=== PATIENT | male | born 1955 | race Caucasian/White ===

== ENCOUNTER 2017-01-26 16:46 | Emergency (ER) | payer BC, OTHER ==
[2017-01-26 17:04] VITALS: BP 168/92
[2017-01-26] MEDS ORDERED: NS 0.9% 1000 ML* 1,000 ML IV ONE (17:34)
[2017-01-26] MEDS ORDERED: Ketorolac INJ* 30 MG/ML 1 ML VIAL IM ONE (17:41)
[2017-01-26] MEDS ORDERED: Ketorolac INJ* 30 MG/ML 1 ML VIAL IV PUSH ONE (17:45)
[2017-01-26] MEDS ORDERED: Ketorolac INJ* 30 MG/ML 1 ML VIAL ONE (17:49)
--- NOTE | 2017-01-26 18:14 | RAD ---
INDICATION: 2 weeks LEFT flank pain. COMPARISON: December 07, 2015 CT. TECHNIQUE: Multidetector CT images were obtained from the lung bases to the ischial tuberosities. Evaluation of the viscera is limited without IV contrast. Multiplanar reformation. REPORT: Small calcified granuloma at the RIGHT lung base and small calcified RIGHT infrahilar lymph nodes. No CT abnormality of the unenhanced liver, gallbladder, pancreas. Small calcified granulomas at the normal sized spleen. Negative for CT abnormality of the upper GI, small bowel, or infra cecal appendix. Mild colonic diverticulosis without findings of diverticulitis. Negative for ascites, or free air. Small fat-containing umbilical hernia without inflammatory change. No significant hernias evident. Normal adrenal glands. 1.5 cm exophytic water density cyst superior pole RIGHT kidney is decreased in size from 7.2 cm previously. No suspicious focal renal lesions, stones, or hydronephrosis. Unremarkable nondilated ureters. Unremarkable urinary bladder. Symmetric seminal vesicles. Multiple pelvic phleboliths. Normal diameter abdominal aorta and common iliac arteries. Physiologic distention of the IVC. Negative for suspicious osseous lesions. IMPRESSION: 1. Negative for urolithiasis or hydronephrosis. 2. Marked interval decrease in size of RIGHT superior pole renal cortical cyst. 3. Normal appendix visualized. 4. Mild colonic diverticulosis without findings of diverticulitis.
[2017-01-26 18:20] LABS: Hematocrit 51 % (42-52); Hemoglobin 17.5 g/dl (14.0-18.0); Mean Corpuscular HGB Conc 35 g/dl (31-36); Mean Corpuscular Hemoglobin 33 pg (27-31); Mean Corpuscular Volume 96 fL (80-94); Mean Platelet Volume 8 um3 (7.4-10.4); Red Blood Count 5.33 10^6/ul (4.0-5.4); Red Cell Distribution Width 12 % (10.5-15); White Blood Count 6.4 10^3/ul (3.5-10.8)
[2017-01-26 18:34] LABS: Potassium 3.6 mmol/L (3.5-5.0)
[2017-01-26 18:35] LABS: Albumin 4.1 g/dL (3.2-5.2); BUN/Creatinine Ratio 20.2 (8-20); C Reactive Protein 1.56 mg/L (< 5.00); Calcium 8.7 mg/dL (8.6-10.3); EGFR African American 112.5 (>60); EGFR Non-African American 87.5 (>60); Globulin 2.8 g/dL (2-4); Total Bilirubin 0.8 mg/dL (0.2-1.0); Total Protein 6.9 g/dL (6.4-8.9)
[2017-01-26] MEDS ORDERED: Dexamethasone IV* 4 MG/ML 1 ML (4 MG) IV SLOW PU ONE (18:50)
[2017-01-26] MEDS ORDERED: Orphenadrine Citrate IV* 30 MG/ML 2 ML VIAL IV ONE (18:50)
[2017-01-26] MEDS ORDERED: oxyCODONE/Acetamin 5/325 MG* TAB PO ONE (20:47)
--- NOTE | 2017-01-27 07:16 | ED ---
Neo Wilson SooYoung, scribed for Magdaleno Pappas MD on 01/26/17 at 1752 . Abdominal Pain/Male - HPI Summary HPI Summary: A 61 y/o M presents with L flank pain onset two weeks ago, worsened last night and radiating into groin. Initially, he thought it was a muscle strain. Flank pain at its worst is 10 out of 10, otherwise rates it as 6-7 out of 10. Denies dysuria, hematuria, frequency, CP, SOB. Alleviating factor: sitting position. PMHx: kidney stones. - History of Current Complaint Chief Complaint: EDFlankPain Stated Complaint: FLANK PAIN Hx Obtained From: Patient Onset/Duration: Gradual Onset, Lasting Hours - worsened last night, Lasting Weeks - 2 weeks, Still Present Timing: Intermittent Severity Initially: Moderate Severity Currently: Severe Pain Intensity: 7 Pain Scale Used: 0-10 Numeric Location: Flank - L Radiates: Yes Radiates to: Other - groin Alleviating Factor(s): Position - sitting Associated Signs And Symptoms: Negative: Chest Pain, Other - neg: SOB, dysuria, hematuria, frequency - Allergies/Home Medications Allergies/Adverse Reactions: Allergies Allergy/AdvReac Type Severity Reaction Status Date / Time No Known Allergies Allergy Verified 12/04/15 13:09 PMH/Surg Hx/FS Hx/Imm Hx Previously Healthy: No Endocrine/Hematology History: Denies: Hx Anticoagulant Therapy, Hx Diabetes, Hx Thyroid Disease Cardiovascular History: Reports: Hx Hypertension Denies: Hx Pacemaker/ICD Respiratory History: Reports: Hx Sleep Apnea - Uses Cpap at home Denies: Hx Asthma, Hx Chronic Obstructive Pulmonary Disease (COPD) History: Reports: Hx Kidney Stones Denies: Hx Kidney Infection, Hx Renal Disease Musculoskeletal History: Reports: Other Musculoskeletal History - Current hummerus fracture Sensory History: Reports: Hx Contacts or Glasses Opthamlomology History: Reports: Hx Contacts or Glasses Neurological History: Denies: Hx Dementia, Hx Seizures Psychiatric History: Denies: Hx Substance Abuse - Surgical History Surgery Procedure, Year, and Place: tonsillectomy Infectious Disease History: Denies: Hx Hepatitis, Hx Human Immunodeficiency Virus (HIV), Traveled Outside the [place] in Last 30 Days - Family History Known Family History: Positive: Cardiac Disease - CAD - MOTHER - Social History Occupation: Employed Full-time Lives: Alone Alcohol Use: Rare Alcohol Amount: 1-2 yr Hx Substance Use: No Substance Use Type: Reports: None Hx Tobacco Use: No Smoking Status (MU): Never Smoked Tobacco Review of Systems Negative: Fever Negative: Chest Pain Negative: Shortness Of Breath Positive: flank pain - L radiates to groin. Negative: dysuria, frequency, hematuria All Other Systems Reviewed And Are Negative: Yes Physical Exam - Summary Physical Exam Summary: VITAL SIGNS: Reviewed. GENERAL: Patient is a well-developed and nourished male who is lying comfortable in the stretcher. Patient is not in any acute respiratory distress. HEAD AND FACE: Normocephalic and atraumatic. EYES: PERRLA, EOMI x 2, No injected conjunctiva. EARS: Hearing grossly intact. Ear canals and tympanic membranes are WNL. MOUTH: Oropharynx within normal limits. NECK: Supple, trachea is midline, no adenopathy, no JVD. CHEST: Symmetric, no tenderness at palpation LUNGS: Clear to auscultation bilaterally. No wheezing or crackles. CVS: RRR, S1 and S2 present, no murmurs or gallops appreciated. ABDOMEN: Soft. NO CVA TENDERNESS, MILD TENDERNESS IN L FLANK. UMBILICAL HERNIA NON-OBSTRUCTING. No signs of distention. Positive bowel sounds. No rebound, no guarding, and no masses palpated. No abdominal bruit or pulsations. EXTREMITIES: FROM in all major joints, no edema, no cyanosis or clubbing. NEURO: Alert and oriented x 3. No acute neurological deficits. Speech is normal. SKIN: Dry and warm Triage Information Reviewed: Yes Vital Signs On Initial Exam: Initial Vitals Temp Pulse Resp BP Pulse Ox 98.3 F 63 17 168/92 95 01/26/17 17:01 01/26/17 17:01 01/26/17 17:01 01/26/17 17:01 01/26/17 17:01 Vital Signs Reviewed: Yes Diagnostics - Vital Signs Vital Signs Temp Pulse Resp BP Pulse Ox 01/26/17 17:01 98.3 F 63 17 168/92 95 - Laboratory Lab Results: Lab Results 01/26/17 01/26/17 01/26/17 Range/Units 18:12 18:12 18:12 WBC 6.4 (3.5-10.8) 10^3/ul RBC 5.33 (4.0-5.4) 10^6/ul Hgb 17.5 (14.0-18.0) g/dl Hct 51 (42-52) % MCV 96 H (80-94) fL MCH 33 H (27-31) pg MCHC 35 (31-36) g/dl RDW 12 (10.5-15) % Plt Count 219 (150-450) 10^3/ul MPV 8 (7.4-10.4) um3 Neut % (Auto) 61.4 (38-83) % Lymph % (Auto) 26.3 (25-47) % Crook % (Auto) 10.5 H (1-9) % Eos % (Auto) 0.8 (0-6) % Baso % (Auto) 1.0 (0-2) % Absolute Neuts (auto) 3.9 (1.5-7.7) 10^3/ul Absolute Lymphs (auto) 1.7 (1.0-4.8) 10^3/ul Absolute Monos (auto) 0.7 (0-0.8) 10^3/ul Absolute Eos (auto) 0.1 (0-0.6) 10^3/ul Absolute Basos (auto) 0.1 (0-0.2) 10^3/ul Absolute Nucleated RBC 0 10^3/ul Nucleated RBC % 0 Sodium 133 (133-145) mmol/L Potassium 3.6 (3.5-5.0) mmol/L Chloride 103 (101-111) mmol/L Carbon Dioxide 25 (22-32) mmol/L Anion Gap 5 (2-11) mmol/L BUN 18 (6-24) mg/dL Creatinine 0.89 (0.67-1.17) mg/dL Est GFR ( Amer) 112.5 (>60) Est GFR (Non-Af Amer) 87.5 (>60) BUN/Creatinine Ratio 20.2 H (8-20) Glucose 83 (70-100) mg/dL Lactic Acid 0.7 (0.5-2.0) mmol/L Calcium 8.7 (8.6-10.3) mg/dL Total Bilirubin 0.80 (0.2-1.0) mg/dL AST 19 (13-39) U/L ALT 25 (7-52) U/L Alkaline Phosphatase 72 (34-104) U/L C-Reactive Protein 1.56 (< 5.00) mg/L Total Protein 6.9 (6.4-8.9) g/dL Albumin 4.1 (3.2-5.2) g/dL Globulin 2.8 (2-4) g/dL Albumin/Globulin Ratio 1.5 (1-3) Amylase 47 (29-103) U/L Lipase 17 (11.0-82.0) U/L Result Diagrams: 01/26/17 18:12 01/26/17 18:12 Lab Statement: Any lab studies that have been ordered have been reviewed, and results considered in the medical decision making process. - CT ABD/PEL CT CT Interpretation: Positive (See Comments) - IMPRESSION: 1. Negative for urolithiasis or hydronephrosis. 2. Marked interval decrease in size of RIGHT superior pole renal cortical cyst. 3. Normal appendix visualized. 4. Mild colonic diverticulosis without findings of diverticulitis. CT Interpretation Completed By: Radiologist - EKG 1838 Cardiac Rate: NL - 63 bpm EKG Rhythm: Sinus Rhythm ST Segment: Normal - no ST elevation EKG Interpretation: RBBB Re-Evaluation - Re-Evaluation 1 Re-Evaluation Time: 18:54 Change: Improved Comment: Discussing results and dispo plan with pt. Pt voiced understanding. Abdominal Pain Fem Course/Dx - Course Course Of Treatment: Pt is a 61 y/o M presenting with L flank pain onset two weeks ago, worsened last night and radiating into groin. Initially, he thought it was a muscle strain. Flank pain at its worst is 10 out of 10, otherwise rates it as 6-7 out of 10. Denies dysuria, hematuria, frequency, CP, SOB. Alleviating factor: sitting position. PMHx: kidney stones. ABD/PEL CT shows "Negative for urolithiasis or hydronephrosis. 2. Marked interval decrease in size of RIGHT superior pole renal cortical cyst. 3. Normal appendix visualized. 4. Mild colonic diverticulosis without findings of diverticulitis.". Blood work is without significant abnormalities. EKG shows NSR at 60 bpm with RBBB and no ST elevation. Abd/pel CT reveals no kidney stones. Therefore, source of pain is likely from lower back. Pt given Toradol, Norflex, Decadron, and sx improved. Pt is much more comfortable. Will be d/c home to f/u with PCP. Pt is hemodynamically stable, A&Ox3. I discussed all the findings and test results with the patient. Patient was instructed to return to the emergency room immediately if any of the symptoms return or worsens. Plan of care was discussed with the patient and understands and agrees. All questions were answered at patient satisfaction. There were no further complaints or concerns. Lung exam before discharge: CTA B/L. Good air exchange. No wheezing or crackles heard. CVS: S1 and S2 present. No murmurs appreciated. Patient is alert and oriented x 3. Patient is hemodynamically stable. Patient will be discharged home with follow up PCP in the next 2-3 days - Diagnoses Differential Diagnosis/HQI/PQRI: Abdominal Aortic Aneurysm, Constipation, Ureteral Stone, Urinary Tract Infection, Other - Lumbar pathology Provider Diagnoses: Back pain Discharge - Discharge Plan Condition: Stable Disposition: HOME Prescriptions: Ibuprofen [Caldolor] 800 mg IV TID PRN #30 inj PRN Reason: Pain Methocarbamol [Robaxin-750 MG TAB] 750 mg PO TID #9 tab oxyCODONE/Acetamin 5/325 MG* [Percocet 5/325 TAB*] 1 tab PO Q6H PRN #12 tab MDD 4 PRN Reason: Pain Patient Education Materials: Oxycodone/Acetaminophen (By mouth), Methocarbamol (By mouth), Ibuprofen (By injection), Back Pain (ED) Referrals: Hao Levine MD [Primary Care Provider] - 3 Days Additional Instructions: Follow up with your primary care provider within three days. Please return to the ED if you experience new or worsening symptoms. The documentation as recorded by the Neo hay SooYoung accurately reflects the service I personally performed and the decisions made by me, Magdaleno Pappas MD.
== END 2017-01-26 20:58 | disposition home or self-care (01) ==
LOC: ED 16:46
DX: M54.9 Dorsalgia, unspecified (principal); R10.84 Generalized abdominal pain
CPT/HCPCS: 36415; 74176; 80053; 82150; 83605; 83690; 85025; 86140; 93005; 96372; 96374; 99283; A9270-GY; J1100; J1885; J2360